=== PATIENT | female | born 1940 | race Caucasian/White ===

== ENCOUNTER 2018-06-15 18:32 | Emergency (ER) | payer MEDICARE, BC ==
--- NOTE | 2018-06-15 20:21 | EDM.PDOC ---
ED HPI GENERAL MEDICAL PROBLEM - General Chief Complaint: Head Injury Stated Complaint: FELL Time Seen by Provider: 06/15/18 19:35 Source of Information: Reports: Patient History Limitations: Reports: No Limitations - History of Present Illness INITIAL COMMENTS - FREE TEXT/NARRATIVE: This woman tripped at home and fell into the refrigerator. She hit her left orbital rim and may have bumped her chest. She complains of pain in the left chest wall when she moves but con't tell me where it hurts. right chest pain Pain Score (Numeric/FACES): 3 right upper rib Pain Score (Numeric/FACES): 4 - Related Data Allergies Allergy/AdvReac Type Severity Reaction Status Date / Time Sulfa (Sulfonamide Allergy Rash Verified 03/03/18 10:06 Antibiotics) Home Meds: Home Meds Aspirin [Adult Aspirin] 81 mg PO BEDTIME 03/03/18 [History] Metoprolol Tartrate [Lopressor] 50 mg PO BID 03/03/18 [History] Multivitamin [Multiple Vitamins] 1 tab PO DAILY 03/03/18 [History] Simvastatin [Zocor] 40 mg PO BEDTIME 03/03/18 [History] Past Medical History HEENT History: Reports: Impaired Vision Cardiovascular History: Reports: High Cholesterol, Hypertension, MD Gastrointestinal History: Reports: Hemorrhoids DEDENTER History: Reports: Musculoskeletal History: Reports: Arthritis - Infectious Disease History Infectious Disease History: Reports: Chicken Pox, Measles, Mumps, Rubella - Past Surgical History HEENT Surgical History: Reports: Oral Surgery Female Surgical History: Reports: Tubal Ligation Musculoskeletal Surgical History: Reports: Hip Replacement Social & Family History - Tobacco Use Smoking Status *Q: Never Smoker - Caffeine Use Caffeine Use: Reports: Coffee, Tea - Recreational Drug Use Recreational Drug Use: No ED ROS GENERAL - Review of Systems Review Of Systems: ROS reveals no pertinent complaints other than HPI. ED EXAM, HEAD INJURY - Physical Exam Exam: See Below Exam Limited By: No Limitations General Appearance: Alert, WD/WN, No Apparent Distress Head: Other (very tiny vertical lac about 8 mm long along left orbital rim. Not bleeding. Well-approximated. No associated bruising. no scalp injury) Eyes: Bilateral Eye: EOMI, PERRL Nose: Normal Inspection Throat/Mouth: Normal Oropharynx Neck: Full Range of Motion Respiratory: Lungs Clear, Chest Non-Tender (No definite areas of chest tenderness) Cardiovascular: Regular Rate, Rhythm, No Murmur Neurologic: order clerk II-XII nml As Tested, No Motor/Sensory Deficits, Alert, Normal Mood/Affect, Oriented x 3 Course - Vital Signs Last Recorded V/S: Last Vital Signs Temp 36.6 C 06/15/18 19:19 Pulse 67 06/15/18 19:19 Resp 16 06/15/18 19:19 BP 172/78 H 06/15/18 19:19 Pulse Ox 97 06/15/18 19:19 - Re-Assessments/Exams Free Text/Narrative Re-Assessment/Exam: 06/15/18 20:20 Nurse walked her around the ER and she did well. Just a little pain in left mid axillary line. She has Tramadol at home. Departure - Departure Time of Disposition: 20:21 Disposition: Home, Self-Care 01 Condition: Fair Clinical Impression: Chest wall injury, Eyebrow laceration - Discharge Information Referrals: Geronimo Hennessy MD [Primary Care Provider] - Additional Instructions: Use your own Tramadol as needed for pain. You may add Tylenol to that if needed. Wash the little cut with soap and water daily. Apply antibiotic ointment and a band-aide.
[2018-06-15] MEDS ORDERED: Bacitracin Oint 1 GM U/D Packet TOP ONE (20:24)
[2018-06-15] MEDS ORDERED: Bacitracin Oint 1 GM U/D Packet ONE (20:35)
== END 2018-06-15 20:56 | disposition home or self-care (01) ==
LOC: JP.ED 18:32
DX: S01.112A Laceration without foreign body of left eyelid and periocular area, initial encounter (principal); S29.9XXA Unspecified injury of thorax, initial encounter; Z88.2 Allergy status to sulfonamides; W01.198A Fall on same level from slipping, tripping and stumbling with subsequent striking against other object, initial encounter; Y92.009 Unspecified place in unspecified non-institutional (private) residence as the place of occurrence of the external cause
CPT/HCPCS: 99283

== ENCOUNTER 2021-07-31 07:25 | Day surgery (SDC) | payer MEDICARE ==
[2021-07-31] MEDS ORDERED: Propofol 200 MG/20 ML SDV ONE (07:42)
[2021-07-31] MEDS ORDERED: fentaNYL 100 MCG/2 ML SDV ONE (07:42)
[2021-07-31] MEDS ORDERED: Sodium Chloride 0.9% 1,000 ML IV SCH (08:00)
--- NOTE | 2021-07-31 14:15 | OR ---
DATE OF PROCEDURE: 07/31/2021 SURGEON: Mitchel Goetz MD PROCEDURE: Colonoscopy. FINDINGS: 1. Sigmoid colon polyp of approximately 8 mm, completely removed using hot snare wire device. 2. A plaque-like area in the rectum (biopsied using cold biopsy forceps). COMPLICATIONS: None. COORDINATOR OF ONLINE PROGRAMS: None. ANESTHESIA: MAC. PREOPERATIVE DIAGNOSIS: Positive Cologuard. POSTOPERATIVE DIAGNOSIS: Positive Cologuard. RISKS: Risks, benefits, alternatives, and limitations including, but not limited to infection, bleeding, perforation, false positives and false negatives were explained to the patient and they wished to proceed. PROCEDURE IN DETAIL: The patient was placed in the left lateral decubitus position. Digital rectal exam was performed. Scope was introduced and advanced atraumatically to the ileocecal valve. A photo was taken of the appendiceal orifice. Scope was brought back to the ascending, transverse, descending colon, and retroflexed. In the sigmoid colon, the aforementioned polyp was identified and completely removed using hot snare wire device. No abnormal bleeding was noted after removal. On retroflexion, the patient had a plaque-like area on one of her hemorrhoids. This was biopsied one time using cold biopsy forceps. Greater than 8 minutes was spent removing the scope. The prep was acceptable, approximately 90% of luminal surface could be seen. The patient tolerated the procedure well. Mitchel Goetz MD /[id number]
== END 2021-07-31 11:20 | disposition home or self-care (01) ==
LOC: JP.SDS 07:25
PROVIDERS: ATTEND Surgery
DX: K63.5 Polyp of colon (principal); K64.9 Unspecified hemorrhoids; K62.1 Rectal polyp; I25.10 Atherosclerotic heart disease of native coronary artery without angina pectoris; E78.5 Hyperlipidemia, unspecified; I10 Essential (primary) hypertension; Z88.2 Allergy status to sulfonamides
CPT/HCPCS: 45380; 45385; J2704; J3010; J7030

== ENCOUNTER 2021-12-31 08:27 | Day surgery (SDC) | payer MEDICARE ==
[~2021-12-31 08:27] MED LIST: Sodium Chloride 0.9% 10 ML Syringe FLUSH PRN
== END 2021-12-31 10:26 | disposition home or self-care (01) ==
LOC: JP.SDS 08:27
PROVIDERS: ATTEND Ophthalmology
DX: H25.11 Age-related nuclear cataract, right eye (principal); I10 Essential (primary) hypertension; I25.2 Old myocardial infarction; Z88.2 Allergy status to sulfonamides
CPT/HCPCS: V2632

== ENCOUNTER 2022-01-14 07:25 | Day surgery (SDC) | payer MEDICARE ==
[2022-01-14] MEDS ORDERED: Sodium Chloride 0.9% 10 ML Syringe FLUSH PRN (08:00)
== END 2022-01-14 09:09 | disposition home or self-care (01) ==
LOC: JP.SDS 07:25
PROVIDERS: ATTEND Ophthalmology
DX: H25.12 Age-related nuclear cataract, left eye (principal); Z88.2 Allergy status to sulfonamides

== ENCOUNTER 2023-03-21 21:10 | Emergency (ER) | payer MEDICARE ==
[2023-03-21] MEDS ORDERED: Sodium Chloride 0.9% 10 ML Syringe FLUSH PRN (21:45)
[2023-03-21 21:56] LABS: APPEARANCE,URINE CLEAR (CLEAR); BILIRUBIN,URINE NEGATIVE (NEGATIVE); COLOR,URINE YELLOW (YELLOW); GLUCOSE,URINE NEGATIVE (NEGATIVE); KETONES,URINE NEGATIVE (NEGATIVE); LEUKOCYTE ESTERASE,URINE NEGATIVE (NEGATIVE); NITRITE,URINE NEGATIVE (NEGATIVE); OCCULT BLOOD,URINE TRACE-INTACT (NEGATIVE); PH,URINE 6.5 (5.0-8.0); PROTEIN,URINE TRACE mg/dL (NEGATIVE); UROBILINOGEN,URINE 0.2 EU/dL (0.2-1.0)
[2023-03-21 21:59] LABS: AMORPHOUS SEDIMENT,URINE NOT SEEN; BACTERIA,URINE FEW; EPITHELIAL CELLS,URINE RARE; MUCUS,URINE NOT SEEN; WBC,URINE 0-5 (0-5)
[2023-03-21 22:06] LABS: BASOPHILS ABSOLUTE AUTO 0.01 K/uL (0.00-0.10); BASOPHILS PERCENT AUTO 0.1 % (0.1-1.3); EOSINOPHILS ABSOLUTE AUTO 0.07 K/uL (0.00-0.40); HEMATOCRIT 38.2 % (34.3-46.0); HEMOGLOBIN 13.2 g/dL (11.2-15.5); IMMATURE GRAN ABSOLUTE AUTO 0.02 K/uL (0.00-0.23); IMMATURE GRAN PERCENT AUTO 0.3 % (0.0-0.7); LYMPHOCYTES ABSOLUTE AUTO 0.43 K/uL (0.8-3.3); LYMPHOCYTES PERCENT AUTO 5.9 % (11.4-47.7); MEAN CORPUSCULAR HEMOGLOBIN 31.3 pg (31.6-35.5); MEAN CORPUSCULAR HGB CONC 34.6 g/dL (31.6-35.5); MEAN CORPUSCULAR VOLUME 90.5 fL (81.4-99.0); MONOCYTES ABSOLUTE AUTO 0.24 K/uL (0.20-0.90); MONOCYTES PERCENT AUTO 3.3 % (3.3-12.6); NEUTROPHILS ABSOLUTE AUTO 6.46 K/uL (1.0-7.6); NEUTROPHILS PERCENT AUTO 89.4 % (40.0-78.1); PLATELET COUNT,PLT 174 K/uL (130-375); RED BLOOD CELL COUNT 4.22 M/uL (3.77-5.24); WHITE BLOOD CELL COUNT,WBC 7.2 K/uL (3.2-11.0)
[2023-03-21 22:27] LABS: ALANINE AMINOTRANSFERASE,ALT 34 U/L (12-78); ALBUMIN 3.4 g/dL (3.4-5.0); ALKALINE PHOSPHATASE 94 U/L (46-116); ASPARTATE AMNIOTRANSFERASE,AST 31 U/L (15-37); BILIRUBIN TOTAL 0.6 mg/dL (0.2-1.0); BLOOD UREA NITROGEN,BUN 19 mg/dL (7-18); CALCIUM 8.5 mg/dL (8.5-10.1); CARBON DIOXIDE,CO2 25 mmol/L (21-32); CHLORIDE,CL 103 mmol/L (100-108); CREATININE 0.9 mg/dL (0.6-1.0); ESTIMATED GFR 63 mL/min (>60); GLUCOSE RANDOM 125 mg/dL (74-106); POTASSIUM,K 3.8 mmol/L (3.6-5.2); PROTEIN TOTAL,TP 6.7 g/dL (6.4-8.2); SODIUM,NA 136 mmol/L (140-148)
[2023-03-21 22:30] LABS: ANION GAP 11.8 mmol/L (5.0-14.0); LACTIC ACID 1.2 mmol/L (0.4-2.0)
== END 2023-03-21 23:30 | disposition home or self-care (01) ==
LOC: JP.ED 21:10
DX: A08.4 Viral intestinal infection, unspecified (principal); E78.00 Pure hypercholesterolemia, unspecified; I10 Essential (primary) hypertension; I25.2 Old myocardial infarction; M19.90 Unspecified osteoarthritis, unspecified site; Z88.2 Allergy status to sulfonamides; Z79.899 Other long term (current) drug therapy; Z79.82 Long term (current) use of aspirin
CPT/HCPCS: 36415; 80053; 81001; 83605; 85025; 99284; J3490; U0002